=== PATIENT | female | born 1980 | race Caucasian/White ===

== ENCOUNTER 2017-03-19 10:40 | Day surgery (SDC) | payer BC ==
[~2017-03-19] VITALS: Ht 170.2 cm; Wt 56.8 kg
[2017-03-19] MEDS ORDERED: SODIUM CHLORIDE 0.9% 1,000 ML IV SCH (11:39)
[2017-03-19 11:53] VITALS: BP 138/96
[2017-03-19] MEDS ORDERED: PLEASE ENTER HEIGHT AND WEIGHT MC SCH (12:00)
[2017-03-19] MEDS ORDERED: MYCO500T PO (12:19)
[2017-03-19] MEDS ORDERED: PRED2.5T PO (12:19)
[2017-03-19] MEDS ORDERED: CYCL100C PO ×2 (12:19)
[2017-03-19] MEDS ORDERED: RAMI2.5C28 PO (12:19)
[2017-03-19] MEDS ORDERED: ELET40TA PO (12:19)
[2017-03-19] MEDS ORDERED: SIMV40TA PO (12:19)
[2017-03-19 12:45] LABS: HEMATOCRIT 35.5 % (34.6-47.8); HEMOGLOBIN 11.8 g/dL (11.7-16.4); WHITE BLOOD COUNT 8.1 x10^3/uL (3.4-10)
[2017-03-19 12:50] LABS: ASPARTATE AMINO TRANSFERASE 16 U/L (15-37); BLOOD UREA NITROGEN 37 mg/dL (7-18)
[2017-03-19] MEDS ORDERED: LIDOCAINE 2%, 20ML ONE (13:22)
[2017-03-19] MEDS ORDERED: MIDAZOLAM 1 MG/ML, 5ML ONE ×2 (13:31→13:41)
[2017-03-19] MEDS ORDERED: FENTANYL PF 100 MCG/2ML ONE ×3 (13:31→17:14)
[2017-03-19] MEDS ORDERED: ONDANSETRON 2MG/ML, 2ML ONE (13:41)
[2017-03-19] MEDS ORDERED: PROPOFOL 10 MG/ML, 20ML ONE (13:41)
[2017-03-19] MEDS ORDERED: DEXAMETHASONE 4 MG/ML, 1ML ONE (13:41)
[2017-03-19] MEDS ORDERED: ALBUTEROL SULFATE 2.5 MG/3 ML NPPB PRN (14:00)
[2017-03-19] MEDS ORDERED: MEPERIDINE/PF 25MG/0.5ML IVPush PRN (14:00)
[2017-03-19] MEDS ORDERED: LABETALOL 5MG/ML, 20ML IV PRN (14:00)
[2017-03-19] MEDS ORDERED: PROMETHAZINE 25 MG/ML, 1ML IV PRN (14:00)
[2017-03-19] MEDS ORDERED: ONDANSETRON 2MG/ML, 2ML IVPush PRN (14:00)
[2017-03-19] MEDS ORDERED: hydrALAzine 20 MG/ML, 1ML IV PRN (14:00)
[2017-03-19] MEDS ORDERED: OXYcodone 5 MG/5 ML ORAL.SOL UDC PO PRN (14:00)
[2017-03-19] MEDS ORDERED: HEPARIN 1,000 UNITS/ML, 10ML ONE (14:42)
[2017-03-19] MEDS ORDERED: OXYcodone 5 MG/5 ML ORAL.SOL UDC ONE (15:55)
[2017-03-19] MEDS ORDERED: MIDAZOLAM 1 MG/ML, 2ML ONE ×2 (15:55→16:35)
[2017-03-19] MEDS: FENTANYL PF 100 MCG/2ML IV PRN ×2 (16:16→16:33)
[2017-03-19] MEDS: MIDAZOLAM 1 MG/ML, 2ML IV PRN ×3 (16:31→16:46)
[2017-03-19] MEDS ORDERED: HYDROmorphone 1 MG/ML, 1ML ONE ×2 (16:32→17:14)
[2017-03-19] MEDS: HYDROmorphone 1 MG/ML, 1ML IV PRN ×3 (16:34→17:16)
[2017-03-19] MEDS ORDERED: LORazepam 2 MG/ML, 1ML IVPush ONE (18:00)
[2017-03-19] MEDS ORDERED: LORazepam 2 MG/ML, 1ML ONE (18:01)
[2017-03-19 20:57] VITALS: BP 125/67
[2017-03-22 18:07] LABS: COCCIDIOIDES IGG <0.150 Abs (.); COCCIDIOIDES IGM <0.150 Abs (.)
== END 2017-03-19 21:22 | disposition home or self-care (01) ==
LOC: CACL 10:40 → 5SO 14:52 → CACL 15:29 → 5SO 17:49 → CACL 21:22
PROVIDERS: ATTEND Internal Medicine Cardiovascular Disease
DX: I25.10 Atherosclerotic heart disease of native coronary artery without angina pectoris (principal); I12.9 Hypertensive chronic kidney disease with stage 1 through stage 4 chronic kidney disease, or unspecified chronic kidney disease; N18.9 Chronic kidney disease, unspecified; E78.5 Hyperlipidemia, unspecified; G43.909 Migraine, unspecified, not intractable, without status migrainosus; Z94.1 Heart transplant status; Z88.1 Allergy status to other antibiotic agents
CPT/HCPCS: 36415; 80053; 80061; 82550; 85025; 85610; 85730; 86635; 87496; 92978; 92979; 93005; 93306; 93460; 93505; C1753; C1769; C1887; C1894; J1100; J1170; J1644; J2060; J2250; J2405; J2704; J3010; J3490; Q9967

== ENCOUNTER 2017-08-18 07:54 | Emergency (ER) | payer BC ==
[~2017-08-18] VITALS: Ht 170.2 cm; Wt 61.2 kg
[~2017-08-18 07:54] MED LIST: CYCL100C PO; ELET40TA PO; MYCO500T PO; PRED2.5T PO; RAMI2.5C28 PO; SIMV40TA PO
[2017-08-18] MEDS ORDERED: CEFTRIAXONE PMX 1GM/50ML 50 ML IVPB ONE (08:30)
[2017-08-18] MEDS ORDERED: DIPH,PERTUSS(ACELL),TET VAC/PF 0.5 ML IM-VACC ONE ×2 (08:30→08:53)
[2017-08-18] MEDS ORDERED: SODIUM CHLORIDE FLUSH 10ML SYR IVF ONE (08:30)
[2017-08-18] MEDS ORDERED: CEFTRIAXONE PMX 1GM/50ML 50 ML ONE (08:52)
[2017-08-18 08:58] LABS: BASOPHILS # (AUTO) 0.02 x10^3/uL (0-0.1); BASOPHILS % (AUTO) 0 % (0-1); EOSINOPHILS # (AUTO) 0.17 x10^3/uL (0-0.4); EOSINOPHILS % (AUTO) 2 % (1-7); LYMPHOCYTES # (AUTO) 1.75 x10^3/uL (1-3.4); LYMPHOCYTES % (AUTO) 16 % (22-44); MD NO; MEAN CORPUSCULAR HEMOGLOBIN 29.1 pg (27.0-34.8); MEAN CORPUSCULAR VOLUME 88.4 fL (80-100); MEAN PLATELET VOLUME 8.2 fL (7.4-10.4); MONOCYTES # (AUTO) 0.58 x10^3/uL (0.2-0.8); MONOCYTES % (AUTO) 5 % (2-9); NEUTROPHILS # (AUTO) 8.23 x10^3/uL (1.8-6.8); NEUTROPHILS % (AUTO) 77 % (42-75); PLATELET COUNT 311 x10^3/uL (130-400); RED BLOOD COUNT 4.16 x10^6/uL (3.82-5.3); RED CELL DISTRIBUTION WIDTH 12.7 % (9.6-15.2)
[2017-08-18 09:05] LABS: ALBUMIN 3.8 g/dL (3.4-5.0); ANION GAP 10 mmol/L (5-15); CALCIUM 8.7 mg/dL (8.5-10.1); CHLORIDE 109 mmol/L (98-107); CREATININE 2.16 mg/dL (0.55-1.02)
[2017-08-18] MEDS ORDERED: SODIUM CHLORIDE 0.9% 1,000ML IVBOLUS ONE (10:00)
[2017-08-18 10:48] VITALS: BP 122/72
== END 2017-08-18 10:51 | disposition home or self-care (01) ==
LOC: ED 09:27
DX: S61.452A Open bite of left hand, initial encounter (principal); L03.113 Cellulitis of right upper limb; Z94.1 Heart transplant status; Z88.0 Allergy status to penicillin; W54.0XXA Bitten by dog, initial encounter; Y93.89 Activity, other specified; Y92.89 Other specified places as the place of occurrence of the external cause; Y99.8 Other external cause status
CPT/HCPCS: 29125; 36415; 73130; 80048; 82040; 85025; 90471; 90715; 96361; 96365; 99285; J0696; J7030

== ENCOUNTER 2018-10-13 18:30 | Emergency (ER) | payer BC ==
[~2018-10-13] VITALS: Ht 170.2 cm; Wt 57.6 kg
--- NOTE | 2018-10-13 18:54 | NUR ---
DR. YOUNG AT BEDSIDE EVALUATING PT
[2018-10-13] MEDS ORDERED: DIPHENHYDRAMINE 50 MG/ML, 1ML IVPush ONE (19:00)
[2018-10-13] MEDS ORDERED: METOCLOPRAMIDE 5 MG/ML, 2ML IVPush ONE (19:00)
[2018-10-13] MEDS ORDERED: MAGNESIUM SULFATE PMX 2GM/50ML 50 ML IV ONE (19:00)
[2018-10-13] MEDS ORDERED: METOCLOPRAMIDE 5 MG/ML, 2ML ONE (19:05)
[2018-10-13] MEDS ORDERED: MAGNESIUM SULFATE PMX 2GM/50ML 50 ML ONE (19:05)
[2018-10-13] MEDS ORDERED: DIPHENHYDRAMINE 50 MG/ML, 1ML ONE (19:05)
--- NOTE | 2018-10-13 19:24 | NUR ---
IV ESTABLISHED. PT MEDICATED PER EMAR. 5 RIGHTS ADDRESSED. WARM BLANKETS PROVIDED. ICE PACK PROVIDED FOR SALDAÑA. LIGHTS DIMMED WELL. MONITORING EQUIPEMTN APPLIED. VITALS STABLE. NSR ON THE MONITOR WITH NO ECTOPY NOTED. CALL LIGHT WITH IN REACH. FAMILY AT BEDSIDE. WILL CONTINUE TO MONITOR.
--- NOTE | 2018-10-13 19:39 | NUR ---
PT C/O BURNING WITH MAG INFUSION. RATE SLOWED. PT REQUESTS OTHER MEDICATIONS IF POSSIBLE. WILL DISCUSS WITH ERP.
[2018-10-13 19:40] VITALS: BP 117/83
[2018-10-13] MEDS ORDERED: PROCHLORPERAZINE 5 MG/ML, 2ML ONE (19:49)
[2018-10-13] MEDS ORDERED: SUMATRIPTAN 6MG/0.5ML SQ ONE ×2 (19:49→20:00)
--- NOTE | 2018-10-13 19:56 | NUR ---
PT MEDICATED PER EMAR. 5 RIGHTS ADDRESSED. SO FAR, NO CHANGE IN SALDAÑA. VITALS STABLE. CALL LIGHT WITHIN REACH. WILL CONTINUE TO MONITOR.
[2018-10-13] MEDS ORDERED: PROCHLORPERAZINE 5 MG/ML, 2ML IVPush ONE (20:00)
--- NOTE | 2018-10-13 20:34 | NUR ---
PT SLEEPING. DID NOT AWAKEN. SIGNIFICANT OTHER AT BEDSIDE. VITALS STABLE. WILL CONTINUE TO MONITOR.
--- NOTE | 2018-10-13 20:43 | NUR ---
PT AWAKE, STATES SHE FEELS SOME RELIEF. SHE FEELS THOUGH SHE CAN MANAGE THE REST OF IT AT HOME. REQUESTS TO BE DC'D. DR. YOUNG AWARE, AT BEDSIDE RE EVALUATING PT
--- NOTE | 2018-10-13 20:52 | NUR ---
Patient/Caregiver given discharge instructions and they have confirmed that they understand the instructions. Patient ambulatory with steady gait.
== END 2018-10-13 20:55 | disposition home or self-care (01) ==
LOC: ED 20:49
DX: G43.919 Migraine, unspecified, intractable, without status migrainosus (principal); Z88.0 Allergy status to penicillin; Z88.2 Allergy status to sulfonamides
CPT/HCPCS: 96365; 96372; 96375; 99283; J0780; J1200; J2765; J3030; J3475